=== PATIENT | male | born 1940 | race Caucasian/White ===

== ENCOUNTER 2017-05-22 07:42 | Day surgery (SDC) | payer MEDICARE ==
[2017-05-18 08:20] VITALS: BMI 28.0
[~2017-05-22 07:42] MED LIST: LACTATED RINGERS 1,000 ML IV SCH
[2017-05-22 08:35] VITALS: RESP 16; TEMP 97
[2017-05-22] MEDS ORDERED: LIDOCAINE 1% 20 ML VIAL (10MG/ML) FOR IV START INTRADERMA ONE (08:41)
[2017-05-22] MEDS ORDERED: LIDOCAINE 1% INJ 10MG/ML (20 ML MDV) ONE (09:07)
[2017-05-22] MEDS ORDERED: PROPOFOL 10 MG/ML 20 ML VIAL IV ONE (09:07)
--- NOTE | 2017-05-22 09:48 | P.PCN ---
Date of Procedure: 05/22/17 Procedure(s) Performed: Procedure: Colonoscopy and biopsy. Preoperative diagnosis: Screening for neoplasia. Postoperative diagnosis: 1. Diminutive distal sigmoid polyp biopsied but no large polyps or cancer. 2. 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 Preparation: HalfLytely prep. Sedation: Was provided by anesthesia. Brief clinical history: The patient is a 76-year-old male who is referred for this evaluation for screening for neoplasia age being his risk factor. The patient had a prior exam in 2008 but his preparation was poor. He has no abdominal complaints, bleeding or anemia. Procedure: With the patient on his left lateral decubitus position and after informed consent and adequate sedation, the perianal area was inspected and it did not show any fissures or fistulas. There were no masses felt on digital rectal examination. The Olympus CFQ 160L video colonoscope was then inserted in the rectum in the usual fashion and advanced to the cecum. There was some hyperpigmentation and mosaic patterns noted consistent with melanosis coli. No obvious diverticular disease or other significant pathology. There was a diminutive polyp in the distal sigmoid which I biopsied but there were no large polyps or cancer. I retroflexed the endoscope in the rectum before the endoscope was withdrawn. Low-grade internal hemorrhoids were noted with no evidence of bleeding. The patient tolerated the procedure well. Plan: The patient was reassured. Discussed dietary measures and local care for hemorrhoids. At his age, I did not schedule follow-up exam in 10 years and that can be kept as a contingency based on his overall health at that time. He will follow up with you as planned and he will discuss that with you.
[2017-05-22 10:30] VITALS: BP 137/70; PULSE 60
== END 2017-05-22 10:44 | disposition home or self-care (01) ==
LOC: ORWHC2ENDO 07:42
DX: Z12.11 Encounter for screening for malignant neoplasm of colon (principal); K63.5 Polyp of colon; K63.89 Other specified diseases of intestine; I25.10 Atherosclerotic heart disease of native coronary artery without angina pectoris; I10 Essential (primary) hypertension; E78.5 Hyperlipidemia, unspecified; N40.0 Benign prostatic hyperplasia without lower urinary tract symptoms; K21.9 Gastro-esophageal reflux disease without esophagitis; Z79.82 Long term (current) use of aspirin; Z79.899 Other long term (current) drug therapy
CPT/HCPCS: 88305; 45380; J2001; J2704

== ENCOUNTER → 2017-07-24 | Outpatient (CLI) | payer MEDICARE ==
--- NOTE | 2017-07-24 13:26 | NM ---
EXAMINATION TYPE: NM stress cardiolite complete DATE OF EXAM: 07/24/2017 COMPARISON: NONE HISTORY: Shortness of breath, chest pain, prior tobacco abuse, hypertension, prior cardiac catheteriz ation, prior myocardial ischemia, hyperlipidemia, and family history of heart disease. TECHNIQUE: After the intravenous administration of 11 mCi Tc 99m Sestamibi - Rest images obtained 59 minutes post injection. The patient exercised using a MATILDA protocol and 1 minute prior to peak ex ercise was injected with 23.8 mCi Tc 99m Sestamibi - Stress images obtained 30 minutes post injection . FINDINGS: Targeted heart rate was achieved during performance of the study. Review of stress and rest SPECT michelle ges demonstrates fixed defect of the inferior septal wall in the distribution of the right coronary a rtery with small fixed defect in the inferolateral wall that is approximately 2 segments with increas ed intensity and involvement of an additional segment on stress images indicating sintia-infarct ischem ia in the distribution of the left circumflex coronary artery. Gated analysis shows abnormal wall mo tion with hypokinesis in the inferior septal wall and inferolateral wall with an estimated left ventr icular ejection fraction of 54 %. TID is calculated within normal limits of 0.93. IMPRESSION: 1. Small fixed defect representing prior infarct with surrounding moderate sintia-infarct reversible is chemia in the distribution of the left circumflex coronary artery. 2. Small fixed defect in the distribution of the right coronary artery from prior infarct. 3. Estimated left ventricular ejection fraction of 54%.
--- NOTE | 2017-07-24 22:55 | EST ---
EXERCISE STRESS Baseline EKG revealed sinus mechanism with leftward axis and nonspecific inferolateral ST abnormality. The patient walked for 6 minutes 45 seconds on a standard Master protocol. His maximal heart rate was 137 beats per minute, well above 85% of predicted maximal. His peak blood pressure was 209/103. Resting heart rate was 55 and blood pressure was 146/90. EKG did not reveal any new ST-segment changes to indicate ischemia and remained inconclusive. There was no angina or any arrhythmia. The stress test was stopped because of fatigue and shortness of breath. By EKG criteria, this is an inconclusive stress test because of resting EKG changes. The patient had a hypertensive response to exercise. He did not have any clear-cut angina. The nuclear scan results which are more pertinent will be reported by the radiologist. HERMINIO / SHERLYN: [id number] /
== END | disposition home or self-care (01) ==
LOC: RADNMMAIN 09:08
PROVIDERS: ATTEND Internal Medicine Cardiovascular Disease
DX: I10 Essential (primary) hypertension (principal); R94.39 Abnormal result of other cardiovascular function study; E78.5 Hyperlipidemia, unspecified; I25.10 Atherosclerotic heart disease of native coronary artery without angina pectoris
CPT/HCPCS: 93017; 78452; A9500

== ENCOUNTER 2021-10-04 16:39 | Emergency (ER) | payer MEDICARE ==
[2021-10-04 16:57] VITALS: TEMP 98
[2021-10-04] MEDS ORDERED: ACETAMINOPHEN TAB 325 MG TAB PO STA (19:42)
[2021-10-04 20:05] VITALS: BP 160/90; PULSE 96; RESP 14
[2021-10-04] MEDS ORDERED: NEOMYCIN-BACITRACIN-POLY OINT 14 GM TUBE TOPICAL STA (20:27)
--- NOTE | 2021-10-04 20:27 | ED ---
General Adult HPI - General Chief complaint: Burn/Smoke Inhalation Stated complaint: L arm urbano/Propane Time Seen by Provider: 10/04/21 19:18 Source: patient Mode of arrival: ambulatory Limitations: no limitations - History of Present Illness Initial comments: Patient is a 81-year-old male presenting with chief complaint of burn. Patient had a welding accident several hours prior to arrival. This resulted in a circumferential second-degree burn to the left forearm. Patient has good range of motion of the fingers, wrist, elbow. He has not taken any pain control prior to arrival. He has been keeping it covered with a wet towel and ice. The burn starts on the dorsal aspect of the hand, and comes up just below the elbow, sparing the palm. Denies numbness, tingling, loss of ROM, chest pain, shortness of breath, fever, chills, nausea, vomiting. - Related Data Home Medications Medication Instructions Recorded Confirmed Aspirin [Adult Low Dose Aspirin EC] 81 mg PO HS 05/18/17 05/18/17 Atorvastatin [Lipitor] 80 mg PO HS 05/18/17 05/18/17 Metoprolol Succinate [Toprol XL] 25 mg PO HS 05/18/17 05/18/17 lisinopriL [Zestril] 5 mg PO HS 05/18/17 05/18/17 Allergies Allergy/AdvReac Type Severity Reaction Status Date / Time No Known Allergies Allergy Verified 10/04/21 16:57 Review of Systems ROS Statement: Those systems with pertinent positive or pertinent negative responses have been documented in the HPI. ROS Other: All systems not noted in ROS Statement are negative. Past Medical History Past Medical History: Coronary Artery Disease (CAD), Hyperlipidemia, Hypertension, Myocardial Infarction (ND), Prostate Disorder Last Myocardial Infarction Date:: 2007 History of Any Multi-Drug Resistant Organisms: None Reported Past Surgical History: Heart Catheterization, Heart Catheterization With Stent Additional Past Surgical History / Comment(s): colonoscopy Past Anesthesia/Blood Transfusion Reactions: No Reported Reaction Date of Last Stent Placement:: 2007 Past Psychological History: No Psychological Hx Reported Past Alcohol Use History: None Reported Past Drug Use History: None Reported - Past Family History Mother Family Medical History: No Reported History General Exam Limitations: no limitations General appearance: alert, in no apparent distress Head exam: Present: atraumatic, normocephalic, normal inspection Eye exam: Present: normal appearance, EOMI. Absent: scleral icterus Neck exam: Present: normal inspection Respiratory exam: Present: normal lung sounds bilaterally. Absent: respiratory distress, wheezes, rales, rhonchi, stridor Cardiovascular Exam: Present: regular rate, normal rhythm, normal heart sounds. Absent: systolic murmur, diastolic murmur, rubs, gallop, clicks Neurological exam: Present: alert, oriented X3, CN II-XII intact Psychiatric exam: Present: normal affect, normal mood Skin exam: Present: other (burn: redness with blanching, blisters) Expanded Distribution of rash: LUE (Left forearm and dorsal surface of the hand) Course Vital Signs 10/04/21 10/04/21 16:52 20:04 Temperature 98 F Pulse Rate 70 96 Respiratory 16 14 Rate Blood Pressure 134/84 160/90 O2 Sat by Pulse 98 Oximetry Medical Decision Making - Medical Decision Making Patient is a 81-year-old male presenting with chief complaint of burn to the left forearm. This occurred after a welding accident several hours ago. Patient has full range of motion of the arm, wrist, fingers. The affected area is bright red. It is circumferential around the left forearm, it covers the dorsal aspect of the hand and spares the palm, about 4.5% of BSA. No numbness or tingling. Good capillary refill. Soft compartments. There are some blisters seen on examination. Full sensation. I spoke with the burn clinic at the [facility], they stated that this patient could follow up outpatient at the burn clinic tomorrow morning. I used triple antibiotic ointment with nonadhesive dressing and gauze, as advised. Educated the patient on this plan. I discussed return parameters. Answered all questions. Report back to ER with any worsening symptoms. Follow up with burn clinic tomorrow, follow-up with PCP in 2-3 days. Patient conveyed verbal understanding and agreed to the plan. I discussed this case with my attending Dr. Piper. Disposition Clinical Impression: Second degree burn Disposition: HOME SELF-CARE Condition: Good Instructions (If sedation given, give patient instructions): Second-Degree Burn (ED) Additional Instructions: Follow up with burn clinic tomorrow. Phone number is [phone], call to make appointment. address: [address] [place], [place] [id number]. They open at 8am. Follow-up with PCP in one to 2 days. Report back to ER if any worsening symptoms. Is patient prescribed a controlled substance at d/c from ED?: No Referrals: Rdaha Carter DO [Primary Care Provider] - 1-2 days Time of Disposition: 21:40
[2021-10-04] MEDS ORDERED: DIPH,PERTUS(ACELL)TETVAC-LF 0.5 ML VIAL IM ONE (21:01)
== END 2021-10-04 22:25 | disposition home or self-care (01) ==
LOC: EC 16:39
DX: T22.212A Burn of second degree of left forearm, initial encounter (principal); I25.10 Atherosclerotic heart disease of native coronary artery without angina pectoris; E78.5 Hyperlipidemia, unspecified; Z23 Encounter for immunization; I10 Essential (primary) hypertension; I25.2 Old myocardial infarction; Z79.1 Long term (current) use of non-steroidal anti-inflammatories (NSAID)
CPT/HCPCS: 90715

== ENCOUNTER 2024-02-13 19:18 | Observation (INO) | payer MEDICARE ==
--- NOTE | 2024-02-13 19:41 | ED ---
General Adult HPI - General Chief complaint: Syncope Stated complaint: nearSyncope Time Seen by Provider: 02/13/24 19:23 Source: patient, EMS, RN notes reviewed Mode of arrival: EMS Limitations: no limitations - History of Present Illness Initial comments: Patient is an 83-year-old male present to the emergency department with concern for syncopal episode. Patient arrives via EMS. Patient states he was working outside all day today. Patient states he was sitting with family and suddenly felt warm all over and vomited. Patient states that he has improved however still feels a little bit nauseous. Patient states he did feel like he was about to pass out but does not believe that he did. Family arrived shortly after and states patient was unresponsive for at least a couple of seconds. - Related Data Home Medications Medication Instructions Recorded Confirmed Aspirin [Adult Low Dose Aspirin EC] 81 mg PO DAILY 05/18/17 02/13/24 Atorvastatin [Lipitor] 80 mg PO HS 05/18/17 02/13/24 Metoprolol Succinate [Toprol XL] 25 mg PO DAILY 05/18/17 02/13/24 lisinopriL [Zestril] 5 mg PO DAILY 05/18/17 02/13/24 Divalproex Sprinkle [Depakote 125 mg PO DAILY 02/13/24 02/13/24 Sprinkle] Divalproex Sprinkle [Depakote 250 mg PO HS 02/13/24 02/13/24 Sprinkle] Famotidine [Pepcid] 20 mg PO DAILY 02/13/24 02/13/24 Melatonin 5 mg PO HS 02/13/24 02/13/24 Multivitamins, Thera [Multivitamin 1 tab PO DAILY 02/13/24 02/13/24 (formulary)] Tamsulosin [Flomax] 0.4 mg PO DAILY 02/13/24 02/13/24 Allergies Allergy/AdvReac Type Severity Reaction Status Date / Time No Known Allergies Allergy Verified 10/04/21 16:57 Review of Systems ROS Statement: Those systems with pertinent positive or pertinent negative responses have been documented in the HPI. ROS Other: All systems not noted in ROS Statement are negative. Constitutional: Denies: fever Eyes: Denies: eye pain ENT: Denies: ear pain Respiratory: Denies: cough, dyspnea Cardiovascular: Denies: chest pain Gastrointestinal: Reports: as per HPI, nausea, vomiting. Denies: abdominal pain Musculoskeletal: Denies: back pain Neurological: Denies: headache, weakness, confusion Past Medical History Past Medical History: Coronary Artery Disease (CAD), Hyperlipidemia, Hypertension, Myocardial Infarction (PR), Prostate Disorder Last Myocardial Infarction Date:: 2007 History of Any Multi-Drug Resistant Organisms: None Reported Past Surgical History: Heart Catheterization, Heart Catheterization With Stent Additional Past Surgical History / Comment(s): colonoscopy Past Anesthesia/Blood Transfusion Reactions: No Reported Reaction Date of Last Stent Placement:: 2007 Past Psychological History: No Psychological Hx Reported Past Alcohol Use History: None Reported Past Drug Use History: None Reported - Past Family History Mother Family Medical History: No Reported History General Exam Limitations: no limitations General appearance: alert, in no apparent distress Head exam: Present: normocephalic Eye exam: Present: normal appearance Neck exam: Present: normal inspection Respiratory exam: Present: normal lung sounds bilaterally Cardiovascular Exam: Present: regular rate, normal rhythm, normal heart sounds GI/Abdominal exam: Present: soft. Absent: tenderness Extremities exam: Present: normal inspection. Absent: pedal edema, calf tenderness Neurological exam: Present: alert, oriented X3, CN II-XII intact. Absent: motor sensory deficit Expanded Neurological exam: Present: protecting the airway Motor strength exam: RUE: 5, LUE: 5, RLE: 5, LLE: 5 Eye Response: (4) open spontaneously Motor Response: (6) obeys commands Verbal Response: (5) oriented Psychiatric exam: Present: normal affect, normal mood Skin exam: Present: normal color Course Vital Signs 02/13/24 02/13/24 02/13/24 19:21 20:13 21:21 Temperature 97.3 F L Pulse Rate 74 63 72 Respiratory 18 18 18 Rate Blood Pressure 119/67 111/63 O2 Sat by Pulse 92 L 94 L Oximetry EKG Findings - EKG Results: EKG: interpreted by ERMD (Left axis. Q wave V1 V2.), sinus rhythm, normal ST/T EKG shows: bradycardia Medical Decision Making - Medical Decision Making Was pt. sent in by a medical professional or institution (, PA, SHIP CLEANER, urgent care, hospital, or shelter...) When possible be specific @ -No Did you speak to anyone other than the patient for history (EMS, parent, family, police, friend...)? What history was obtained from this source @ -Family does arrive and provides additional history that patient did truly have a syncopal episode Did you review nursing and triage notes (agree or disagree)? Why? @ -I reviewed and agree with nursing and triage notes Were old charts reviewed (outside hosp., previous admission, EMS record, old EKG, old radiological studies, urgent care reports/EKG's, shelter records)? Report findings @ -No old charts were reviewed Differential Diagnosis (chest pain, altered mental status, abdominal pain women, abdominal pain men, vaginal bleeding, weakness, fever, dyspnea, syncope, headache, dizziness, GI bleed, back pain, seizure, CVA, palpatations, mental health, musculoskeletal)? @ -Differential Syncope: Valvular disease, hypertrophic cardiomyopathy, pulmonary embolism, tamponade, tachycardia, bradycardia, PR, hypovolemia, hemorrhage, dissection, anemia, intracranial hemorrhage, seizure, hypoglycemia, carbon monoxide poisoning, this is not meant to be an all-inclusive list. EKG interpreted by me (3pts min.). @ -As above X-rays interpreted by me (1pt min.). @ -Chest x-ray does show cardiomegaly and some minimal interstitial changes are increased. CT interpreted by me (1pt min.). @ -None done U/S interpreted by me (1pt. min.). @ -None done What testing was considered but not performed or refused? (CT, X-rays, U/S, labs)? Why? @ -Pro BNP will be added What meds were considered but not given or refused? Why? @ -None Did you discuss the management of the patient with other professionals (professionals i.e. DrVicki, PA, SHIP CLEANER, lab, RT, psych nurse, social service technician, manager of financial reporting, teacher, airplane first officer, case management manager)? Give summary @ -I did talk with practitioner Katarzyna Barrios will admit covering for Dr. Cordero, covering for Dr. Purcell Was smoking cessation discussed for >3mins.? @ -No Was critical care preformed (if so, how long)? @ -No Were there social determinants of health that impacted care today? How? (Homeles sness, low income, unemployed, alcoholism, drug addiction, transportation, low edu. Level, literacy, decrease access to med. care, skilled nursing, rehab)? @ -No Was there de-escalation of care discussed even if they declined (Discuss DNR or withdrawal of care, Hospice)? DNR status @ -No What co-morbidities impacted this encounter? (DM, HTN, Smoking, COPD, CAD, Cancer, CVA, ARF, Chemo, Hep., AIDS, mental health diagnosis, sleep apnea, morbid obesity)? @ -None Was patient admitted / discharged? Hospital course, mention meds given and route, prescriptions, significant lab abnormalities, going to OR and other pertinent info. @ -Patient presents with syncopal episode. Workup unremarkable. Patient will be admitted, admission orders written. Consult placed. Patient and family updated. Undiagnosed new problem with uncertain prognosis? @ -No Drug Therapy requiring intensive monitoring for toxicity (Heparin, Nitro, Insulin, Cardizem)? @ -No Were any procedures done? @ -No Diagnosis/symptom? @ -Syncope Acute, or Chronic, or Acute on Chronic? @ -Acute Uncomplicated (without systemic symptoms) or Complicated (systemic symptoms)? @ -Default Side effects of treatment? @ -No Exacerbation, Progression, or Severe Exacerbation? @ -No Poses a threat to life or bodily function? How? (Chest pain, USA, PR, pneumonia, PE, COPD, DKA, ARF, appy, cholecystitis, CVA, Diverticulitis, Homicidal, Suici ken, threat to staff... and all critical care pts) @ -No - Lab Data Result diagrams: 02/13/24 19:51 02/13/24 19:51 Lab Results 02/13/24 02/13/24 02/13/24 Range/Units 19:51 19:51 19:51 WBC 6.4 (3.8-10.6) k/uL RBC 4.20 L (4.30-5.90) m/uL Hgb 13.1 (13.0-17.5) gm/dL Hct 38.9 L (39.0-53.0) % MCV 92.6 (80.0-100.0) fL MCH 31.1 (25.0-35.0) pg MCHC 33.5 (31.0-37.0) g/dL RDW 13.5 (11.5-15.5) % Plt Count 218 (150-450) k/uL MPV 7.9 Neutrophils % 59 % Lymphocytes % 27 % Monocytes % 8 % Eosinophils % 3 % Basophils % 0 % Neutrophils # 3.8 (1.3-7.7) k/uL Lymphocytes # 1.7 (1.0-4.8) k/uL Monocytes # 0.5 (0-1.0) k/uL Eosinophils # 0.2 (0-0.7) k/uL Basophils # 0.0 (0-0.2) k/uL PT 10.7 (10.0-12.5) sec INR 1.0 (<1.2) APTT 22.8 (22.0-30.0) sec Sodium 137 (137-145) mmol/L Potassium 4.6 (3.5-5.1) mmol/L Chloride 105 (98-107) mmol/L Carbon Dioxide 30 (22-30) mmol/L Anion Gap 2 mmol/L BUN 23 H (9-20) mg/dL Creatinine 0.87 (0.66-1.25) mg/dL Est GFR (CKD-EPI)AfAm >90 (>60 ml/min/1.73 sqM) Est GFR (CKD-EPI)NonAf 81 (>60 ml/min/1.73 sqM) Glucose 114 H (74-99) mg/dL Calcium 8.9 (8.4-10.2) mg/dL Magnesium 2.0 (1.6-2.3) mg/dL Total Bilirubin 0.6 (0.2-1.3) mg/dL AST 38 (17-59) U/L ALT 27 (4-49) U/L Alkaline Phosphatase 48 (38-126) U/L Troponin I (0.000-0.034) ng/mL Total Protein 5.8 L (6.3-8.2) g/dL Albumin 3.6 (3.5-5.0) g/dL Valproic Acid 25.6 ug/mL 02/13/24 Range/Units 19:51 WBC (3.8-10.6) k/uL RBC (4.30-5.90) m/uL Hgb (13.0-17.5) gm/dL Hct (39.0-53.0) % MCV (80.0-100.0) fL MCH (25.0-35.0) pg MCHC (31.0-37.0) g/dL RDW (11.5-15.5) % Plt Count (150-450) k/uL MPV Neutrophils % % Lymphocytes % % Monocytes % % Eosinophils % % Basophils % % Neutrophils # (1.3-7.7) k/uL Lymphocytes # (1.0-4.8) k/uL Monocytes # (0-1.0) k/uL Eosinophils # (0-0.7) k/uL Basophils # (0-0.2) k/uL PT (10.0-12.5) sec INR (<1.2) APTT (22.0-30.0) sec Sodium (137-145) mmol/L Potassium (3.5-5.1) mmol/L Chloride (98-107) mmol/L Carbon Dioxide (22-30) mmol/L Anion Gap mmol/L BUN (9-20) mg/dL Creatinine (0.66-1.25) mg/dL Est GFR (CKD-EPI)AfAm (>60 ml/min/1.73 sqM) Est GFR (CKD-EPI)NonAf (>60 ml/min/1.73 sqM) Glucose (74-99) mg/dL Calcium (8.4-10.2) mg/dL Magnesium (1.6-2.3) mg/dL Total Bilirubin (0.2-1.3) mg/dL AST (17-59) U/L ALT (4-49) U/L Alkaline Phosphatase (38-126) U/L Troponin I <0.012 (0.000-0.034) ng/mL Total Protein (6.3-8.2) g/dL Albumin (3.5-5.0) g/dL Valproic Acid ug/mL Disposition Clinical Impression: Syncope Disposition: ADMITTED IP TO THIS HOSP Is patient prescribed a controlled substance at d/c from ED?: No Referrals: Radha Carter DO [Primary Care Provider] - 1-2 days Time of Disposition: 21:43
[2024-02-13] MEDS: ONDANSETRON 4 MG/2 ML VIAL IVP STA (19:44)
[2024-02-13] MEDS: FAMOTIDINE 20 MG/2 ML VIAL IV STA (19:44)
[2024-02-13 19:58] LABS: Basophils % (A) 0 %; Eosinophils # (A) 0.2 k/uL (0-0.7); Eosinophils % (A) 3 %; HCT 38.9 % (39.0-53.0); HGB 13.1 gm/dL (13.0-17.5); Lymphocytes # (A) 1.7 k/uL (1.0-4.8); Lymphocytes % (A) 27 %; MCH 31.1 pg (25.0-35.0); MCHC 33.5 g/dL (31.0-37.0); MCV 92.6 fL (80.0-100.0); Mean Platelet Volume 7.9; Monocytes # (A) 0.5 k/uL (0-1.0); Monocytes % (A) 8 %; Neutrophils # (A) 3.8 k/uL (1.3-7.7); Neutrophils % (A) 59 %; Platelet Count 218 k/uL (150-450); RDW 13.5 % (11.5-15.5); WBC 6.4 k/uL (3.8-10.6)
[2024-02-13 20:07] LABS: ALT 27 U/L (4-49); AST 38 U/L (17-59); African American GFR (CKD) >90 (>60 ml/min/1.73 sqM); Albumin 3.6 g/dL (3.5-5.0); Alkaline Phosphatase 48 U/L (38-126); Anion Gap 2 mmol/L; Blood Urea Nitrogen 23 mg/dL (9-20); Calcium 8.9 mg/dL (8.4-10.2); Carbon Dioxide 30 mmol/L (22-30); Chloride 105 mmol/L (98-107); Glucose 114 mg/dL (74-99); Non-African American GFR(CKD) 81 (>60 ml/min/1.73 sqM); Potassium 4.6 mmol/L (3.5-5.1); Sodium 137 mmol/L (137-145); Total Bilirubin 0.6 mg/dL (0.2-1.3); Total Protein 5.8 g/dL (6.3-8.2)
[2024-02-13 20:12] LABS: Valproic Acid (Depakene) 25.6 ug/mL
--- NOTE | 2024-02-13 20:32 | XR ---
EXAMINATION TYPE: XR chest 2V DATE OF EXAM: 02/13/2024 8:00 PM CLINICAL INDICATION:Male, 83 years old with history of syncope; [facility] COMPARISON: 04/23/2014 TECHNIQUE: XR chest 2V. Frontal and lateral views of the chest.. FINDINGS: EKG leads overlie the chest. No indwelling lines are seen. Heart size is upper limits of normal. Partially calcified mildly tortuous aorta. Central vascular congestion with diffuse interstitial prominence suggesting edema. Mild bibasilar ate lectasis. No focal consolidation, sizable effusion, or pneumothorax demonstrated. Mild/moderate diffuse osseous degenerative changes. No clearly acute bony abnormalities. IMPRESSION: Borderline mild cardiomegaly with mild congestive changes. [facility], , 02/13/2024 8:29 PM
[2024-02-13 20:53] LABS: Partial Thromboplastin Time 22.8 sec (22.0-30.0); Prothrombin Time 10.7 sec (10.0-12.5)
[2024-02-13] MEDS ORDERED: NALOXONE 0.4 MG/ML 1 ML VIAL IV PRN (21:43)
[2024-02-14 04:20] LABS: Basophils % (A) 0 %; Eosinophils # (A) 0.1 k/uL (0-0.7); Eosinophils % (A) 2 %; HCT 37.8 % (39.0-53.0); HGB 12.2 gm/dL (13.0-17.5); Lymphocytes # (A) 1.2 k/uL (1.0-4.8); Lymphocytes % (A) 24 %; MCH 29.9 pg (25.0-35.0); MCHC 32.2 g/dL (31.0-37.0); MCV 92.8 fL (80.0-100.0); Mean Platelet Volume 8.2; Monocytes # (A) 0.6 k/uL (0-1.0); Monocytes % (A) 11 %; Neutrophils % (A) 59 %; Platelet Count 214 k/uL (150-450); RBC 4.08 m/uL (4.30-5.90); RDW 13.6 % (11.5-15.5); WBC 5.1 k/uL (3.8-10.6)
[2024-02-14 04:35] LABS: ALT 24 U/L (4-49); AST 29 U/L (17-59); African American GFR (CKD) >90 (>60 ml/min/1.73 sqM); Albumin 3.4 g/dL (3.5-5.0); Alkaline Phosphatase 46 U/L (38-126); Anion Gap 3 mmol/L; Blood Urea Nitrogen 22 mg/dL (9-20); Calcium 9.1 mg/dL (8.4-10.2); Carbon Dioxide 28 mmol/L (22-30); Chloride 107 mmol/L (98-107); Glucose 95 mg/dL (74-99); Non-African American GFR(CKD) 83 (>60 ml/min/1.73 sqM); Potassium 4.6 mmol/L (3.5-5.1); Sodium 138 mmol/L (137-145); Total Bilirubin 0.5 mg/dL (0.2-1.3); Total Protein 5.5 g/dL (6.3-8.2)
--- NOTE | 2024-02-14 09:53 | P.CRDCN ---
History of Present Illness History of present illness: HISTORY OF PRESENT ILLNESS: This is a 83-year-old male with a past medical history significant for hypertension, hyperlipidemia, myocardial infarction, traumatic brain injury, and seizure disorder. Patient follows with Dr. Arndt in [facility]. We have been asked to see the patient in consultation for syncope. Patient examined at the bedside in the emergency room. Patient's family is present and helping to provide additional HPI. Patient was eating pizza yesterday with his family. He was sitting down at the kitchen table when he felt his face get flushed and told his family he felt like he was going to pass out. His family helped stand him up and get him to the recliner. The family member states at that time, the patient did pass out. He also states that the patient was extremely diaphoretic. The patient also had an episode of vomiting. The patient was reportedly bradycardic when EMS arrived. The patient is reporting sinus congestion and fullness this morning. DIAGNOSTICS: - EKG reveals sinus bradycardia with no signs of acute ischemia. - Chest xray borderline mild cardiomegaly with mild congestive changes. - Laboratory data: WBC 5.1. Hemoglobin 12.2. WBC 214. Sodium 138. Potassium 4.6. BUN 22. Creatinine 0.82. Magnesium 2.0. Troponin negative x 3. proBNP 264. - Current home cardiac medications include aspirin 81 mg daily, atorvastatin 80 mg at night, metoprolol succinate 25 mg daily, lisinopril 5 mg daily. -Patient underwent Cardiolite stress test in July 2017 revealing small fixed defect representing prior infarct with surrounding moderate sintia-infarct reversible ischemia in the distribution of the left circumflex coronary artery. A small fixed defect in the distribution of the RCA from prior infarct. EF estimated at 54%. REVIEW OF SYSTEMS: At the time of my exam: CONSTITUTIONAL: Denies fever or chills. HEENT: Denies blurred vision, vision changes, or eye pain. Denies hemoptysis CARDIOVASCULAR: Denies chest pain. Denies orthopnea. Denies PND. Denies palpitations RESPIRATORY: Denies shortness of breath. GASTROINTESTINAL: Denies abdominal pain. Denies nausea or vomiting. HEMATOLOGIC: Denies bleeding disorders. GENITOURINARY: Denies any blood in urine. SKIN: Denies pruitis. Denies rash. PHYSICAL EXAM: VITAL SIGNS: Reviewed. GENERAL: Well-developed in no acute distress. HEENT: Head is normocephalic. Pupils are equal, round. Sclerae anicteric. Mucous membranes of the mouth are moist. Neck supple. No JVD or thyromegaly LUNGS: Respirations even and unlabored. Lungs essentially clear to auscultation bilaterally. HEART: Regular rate and rhythm. S1 and S2 heard. ABDOMEN: Soft. Nondistended. Nontender. EXTREMITIES: Normal range of motion. No clubbing or cyanosis. Peripheral pulses intact. Bilateral lower extremity edema noted. NEUROLOGIC: Awake and alert. Oriented x 3. ASSESSMENT: Syncope, likely vasovagal in nature Hypertension Hyperlipidemia History of myocardial infarction, details unknown History of traumatic brain injury, 3 years ago History of seizure disorder Chronic lower extremity edema PLAN: Obtain 2D echo to assess cardiac structure and function Resume home cardiac medications Continue telemetry monitoring Obtain records from patient's primary test engine operator Event monitors are currently unavailable at this facility. Will provide patient with a 14-day Holter at the time of discharge with report to be sent to his primary test engine operator. Possible discharge home this afternoon if patient remains stable Patient to follow-up postdischarge with his primary test engine operator, Dr. Arndt Nurse practitioner note has been reviewed by physician. Signing provider agrees with the documented findings, assessment, and plan of care documented by MACHINE HEEL SEAT FITTER as a scribe. Past Medical History Past Medical History: Coronary Artery Disease (CAD), Hyperlipidemia, Hypertension, Myocardial Infarction ([place]), Prostate Disorder Last Myocardial Infarction Date:: 2007 History of Any Multi-Drug Resistant Organisms: None Reported Past Surgical History: Heart Catheterization, Heart Catheterization With Stent Additional Past Surgical History / Comment(s): colonoscopy Past Anesthesia/Blood Transfusion Reactions: No Reported Reaction Date of Last Stent Placement:: 2007 Past Psychological History: No Psychological Hx Reported Past Alcohol Use History: None Reported Past Drug Use History: None Reported - Past Family History Mother Family Medical History: No Reported History Medications and Allergies Home Medications Medication Instructions Recorded Confirmed Type Aspirin [Adult Low Dose Aspirin EC] 81 mg PO DAILY 05/18/17 02/13/24 History Atorvastatin [Lipitor] 80 mg PO HS 05/18/17 02/13/24 History Metoprolol Succinate [Toprol XL] 25 mg PO DAILY 05/18/17 02/13/24 History lisinopriL [Zestril] 5 mg PO DAILY 05/18/17 02/13/24 History Divalproex Sprinkle [Depakote 125 mg PO DAILY 02/13/24 02/13/24 History Sprinkle] Divalproex Sprinkle [Depakote 250 mg PO HS 02/13/24 02/13/24 History Sprinkle] Famotidine [Pepcid] 20 mg PO DAILY 02/13/24 02/13/24 History Melatonin 5 mg PO HS 02/13/24 02/13/24 History Multivitamins, Thera [Multivitamin 1 tab PO DAILY 02/13/24 02/13/24 History (formulary)] Tamsulosin [Flomax] 0.4 mg PO DAILY 02/13/24 02/13/24 History Allergies Allergy/AdvReac Type Severity Reaction Status Date / Time No Known Allergies Allergy Verified 10/04/21 16:57 Physical Exam Vitals: Vital Signs Temp Pulse Resp BP Pulse Ox 02/14/24 06:53 70 11 L 140/75 96 02/14/24 05:04 60 02/14/24 03:34 52 L 18 105/53 99 02/14/24 02:23 46 L 19 114/69 100 02/14/24 01:12 97.6 F 55 L 11 L 121/72 98 02/14/24 00:35 64 02/14/24 00:10 46 L 18 101/63 99 02/13/24 22:25 71 12 92/51 99 02/13/24 22:14 98 02/13/24 21:21 72 18 111/63 94 L 02/13/24 20:13 63 18 119/67 92 L 02/13/24 19:21 97.3 F L 74 18 Intake and Output 02/13/24 02/14/24 02/14/24 22:59 06:59 14:59 Other: Weight 88.451 kg Results 02/14/24 03:29 02/14/24 03:29 Cardiac Enzymes 02/13/24 02/13/24 02/14/24 Range/Units 19:51 19:51 00:32 AST 38 (17-59) U/L Troponin I <0.012 <0.012 (0.000-0.034) ng/mL 02/14/24 02/14/24 Range/Units 03:29 03:29 AST 29 (17-59) U/L Troponin I <0.012 (0.000-0.034) ng/mL Coagulation 02/13/24 Range/Units 19:51 PT 10.7 (10.0-12.5) sec APTT 22.8 (22.0-30.0) sec CBC 02/13/24 02/14/24 Range/Units 19:51 03:29 WBC 6.4 5.1 (3.8-10.6) k/uL RBC 4.20 L 4.08 L (4.30-5.90) m/uL Hgb 13.1 12.2 L (13.0-17.5) gm/dL Hct 38.9 L 37.8 L (39.0-53.0) % Plt Count 218 214 (150-450) k/uL Comprehensive Metabolic Panel 02/13/24 02/14/24 Range/Units 19:51 03:29 Sodium 137 138 (137-145) mmol/L Potassium 4.6 4.6 (3.5-5.1) mmol/L Chloride 105 107 (98-107) mmol/L Carbon Dioxide 30 28 (22-30) mmol/L BUN 23 H 22 H (9-20) mg/dL Creatinine 0.87 0.82 (0.66-1.25) mg/dL Glucose 114 H 95 (74-99) mg/dL Calcium 8.9 9.1 (8.4-10.2) mg/dL AST 38 29 (17-59) U/L ALT 27 24 (4-49) U/L Alkaline Phosphatase 48 46 (38-126) U/L Total Protein 5.8 L 5.5 L (6.3-8.2) g/dL Albumin 3.6 3.4 L (3.5-5.0) g/dL Current Medications Generic Name Dose Route Start Last Admin Trade Name Freq PRN Reason Stop Dose Admin Atorvastatin Calcium 80 mg 02/14/24 21:00 Atorvastatin 80 Mg Tab PO HS ANTONINO Famotidine 20 mg 02/14/24 09:00 Famotidine 20 Mg Tab PO DAILY ANTONINO Melatonin 5 mg 02/14/24 21:00 Melatonin 5 Mg Tablet PO HS ANTONINO Multivitamins 1 each 02/14/24 09:00 Multivitamins, Thera 1 Each Tab PO DAILY [facility] Naloxone HCl 0.2 mg 02/13/24 21:43 Naloxone 0.4 Mg/Ml 1 Ml Vial IV Q2M PRN Opioid Reversal Intake and Output 02/13/24 02/14/24 02/14/24 22:59 06:59 14:59 Other: Weight 88.451 kg 02/14/24 03:29 02/14/24 03:29
[2024-02-14] MEDS: MULTIVITAMINS, THERA 1 EACH TAB PO SCH (10:03)
[2024-02-14] MEDS: lisinopriL 5 MG TAB PO SCH (10:03)
[2024-02-14] MEDS: DIVALPROEX SPRINKLE 125 MG CAP.SPRINK PO SCH ×2 (10:03→20:38)
[2024-02-14] MEDS: METOPROLOL SUCCINATE (ER) 25 MG TAB.ER.24H PO SCH (10:04)
[2024-02-14] MEDS: FAMOTIDINE 20 MG TAB PO SCH (10:04)
[2024-02-14] MEDS: TAMSULOSIN 0.4 MG CAP.ER.24H PO SCH (10:04)
[2024-02-14] MEDS: ASPIRIN 81 MG PO SCH (10:04)
--- NOTE | 2024-02-14 10:19 | P.HPIM ---
History of Present Illness History of present illness; 83-year-old male with a past medical history of hyperlipidemia, hypertension, BPH, and TBI (3 years ago) presents with complaints of a syncopal episode. Patient reports he was working outside all day yesterday, in the evening was sitting with his family when he started to feel very warm and vomited. Patient reports he did not feel he was about to pass out and believes that he did not, but after speaking with the family they report he was unresponsive for at least a couple seconds. Family also report they noticed some urinary incontinence when the patient was not responsive. Family reports they did not see any jerking of the extremities. Family reports after the episode patient was not completely responsive but was awake and only speaking in 1-2 word phrases. Family then reports by the time EMS arrived the patient had regained his normal mentation. Initial lab work from the ER was significant for WBC 6.4, hemoglobin 13.1, MCV 92.6, PT 10.7, INR 1.0, sodium 137, potassium 4.6, bicarb 30, creatinine 0.87, glucose 95, troponin less than 0.012, and BNP 264. EKG done in the ER showed heart rate of 58 bpm, no ST segment elevation or depression seen, no T-wave inversions seen. Sinus bradycardia with first-degree AV block ER CXR: Borderline mild cardiomegaly with mild congestive changes ER CT head: No acute intracranial process, encephalomalacia involving the bilateral temporal lobes and left parietal lobe from prior insults. Patient admitted to internal medicine service REVIEW OF SYSTEMS: CONSTITUTIONAL: No fever, no malaise, no fatigue. HEENT: No recent visual problems or hearing problems. Denied any sore throat. CARDIOVASCULAR: No chest pain, orthopnea, PND, no palpitations, no syncope. PULMONARY: No shortness of breath, no cough, no hemoptysis. GASTROINTESTINAL: No diarrhea, no nausea, no vomiting, no abdominal pain. NEUROLOGICAL: No headaches, no weakness, no numbness. HEMATOLOGICAL: Denies any bleeding or petechiae. GENITOURINARY: Denies any burning micturition, frequency, or urgency. MUSCULOSKELETAL/RHEUMATOLOGICAL: Denies any joint pain, swelling, or any muscle pain. ENDOCRINE: Denies any polyuria or polydipsia. The rest of the 14-point review of systems is negative. PHYSICAL EXAMINATION: GENERAL: The patient is alert and oriented x3, not in any acute distress. Well developed, well nourished. HEENT: Pupils are round and equally reacting to light. EOMI. No scleral icterus. No conjunctival pallor. Normocephalic, atraumatic. No pharyngeal erythema. No thyromegaly. CARDIOVASCULAR: S1 and S2 present. No murmurs, rubs, or gallops. PULMONARY: Chest is clear to auscultation b/l, no wheezing or crackles. ABDOMEN: Soft, nontender, nondistended, normoactive bowel sounds. No palpable organomegaly. MUSCULOSKELETAL: No joint swelling or deformity. EXTREMITIES: No cyanosis, clubbing, or pedal edema. NEUROLOGICAL: Gross neurological examination did not reveal any focal deficits. SKIN: No rashes. Assessment & Plan: #Witnessed syncopal episode: Cardiology on consult, recommend resuming home cardiac medications and providing patient with 14-day Holter monitor at time of discharge, will follow for further recommendations Echo ordered Neurology on consult, recommend increasing Depakote to 500 mg twice daily Seizure precaution and pads Per [facility], recent seizures/syncope disallows people from driving for at least 6 months of being seizure-free or no further syncopal episodes. #Hypertension Resumed home meds #Hyperlipidemia: Resumed home meds #BPH: Resumed home tamsulosin # History of traumatic brain injury: Patient follows with neurologist outpatient, is on low dose of Depakote for mood and antiseizure benefits Neurology following F: None E: None N: Heart healthy diet A: Normally ambulates at home unassisted DVT ppx: Heparin SQ 5000 every 12 hours GI ppx: Famotidine CODE STATUS: Full code Dispo: Pending clinical course Gina Hawley MD PGY-1 FM Attestation I have seen and examined this patient with my resident , discussed the same with the resident/SONY, and agree with the dictator's assessment and plan as written Dr. Rashard edward Dictation was produced using [employer] dictation software. please excuse any grammatical, word or spelling errors. Past Medical History Past Medical History: Coronary Artery Disease (CAD), Hyperlipidemia, Hypertensi on, Myocardial Infarction ([place]), Prostate Disorder Last Myocardial Infarction Date:: 2007 History of Any Multi-Drug Resistant Organisms: None Reported Past Surgical History: Heart Catheterization, Heart Catheterization With Stent Additional Past Surgical History / Comment(s): colonoscopy Past Anesthesia/Blood Transfusion Reactions: No Reported Reaction Date of Last Stent Placement:: 2007 Past Psychological History: No Psychological Hx Reported Past Alcohol Use History: None Reported Past Drug Use History: None Reported - Past Family History Mother Family Medical History: No Reported History Medications and Allergies Home Medications Medication Instructions Recorded Confirmed Type Aspirin [Adult Low Dose Aspirin EC] 81 mg PO DAILY 05/18/17 02/13/24 History Atorvastatin [Lipitor] 80 mg PO HS 05/18/17 02/13/24 History Metoprolol Succinate [Toprol XL] 25 mg PO DAILY 05/18/17 02/13/24 History lisinopriL [Zestril] 5 mg PO DAILY 05/18/17 02/13/24 History Divalproex Sprinkle [Depakote 125 mg PO DAILY 02/13/24 02/13/24 History Sprinkle] Divalproex Sprinkle [Depakote 250 mg PO HS 02/13/24 02/13/24 History Sprinkle] Famotidine [Pepcid] 20 mg PO DAILY 02/13/24 02/13/24 History Melatonin 5 mg PO HS 02/13/24 02/13/24 History Multivitamins, Thera [Multivitamin 1 tab PO DAILY 02/13/24 02/13/24 History (formulary)] Tamsulosin [Flomax] 0.4 mg PO DAILY 02/13/24 02/13/24 History Allergies Allergy/AdvReac Type Severity Reaction Status Date / Time No Known Allergies Allergy Verified 10/04/21 16:57 Physical Exam Vitals: Vital Signs Temp Pulse Resp BP Pulse Ox 02/14/24 06:53 70 11 L 140/75 96 02/14/24 05:04 60 02/14/24 03:34 52 L 18 105/53 99 02/14/24 02:23 46 L 19 114/69 100 02/14/24 01:12 97.6 F 55 L 11 L 121/72 98 02/14/24 00:35 64 02/14/24 00:10 46 L 18 101/63 99 02/13/24 22:25 71 12 92/51 99 02/13/24 22:14 98 02/13/24 21:21 72 18 111/63 94 L 02/13/24 20:13 63 18 119/67 92 L 02/13/24 19:21 97.3 F L 74 18 Intake and Output 02/13/24 02/14/24 02/14/24 22:59 06:59 14:59 Other: Weight 88.451 kg Results CBC & Chem 7: 02/15/24 04:31 02/15/24 04:31 Labs: Abnormal Lab Results - Last 24 Hours (Table) 02/13/24 02/13/24 02/14/24 Range/Units 19:51 19:51 03:29 RBC 4.20 L 4.08 L (4.30-5.90) m/uL Hgb 12.2 L (13.0-17.5) gm/dL Hct 38.9 L 37.8 L (39.0-53.0) % BUN 23 H (9-20) mg/dL Glucose 114 H (74-99) mg/dL Total Protein 5.8 L (6.3-8.2) g/dL Albumin (3.5-5.0) g/dL 02/14/24 Range/Units 03:29 RBC (4.30-5.90) m/uL Hgb (13.0-17.5) gm/dL Hct (39.0-53.0) % BUN 22 H (9-20) mg/dL Glucose (74-99) mg/dL Total Protein 5.5 L (6.3-8.2) g/dL Albumin 3.4 L (3.5-5.0) g/dL
--- NOTE | 2024-02-14 11:23 | CT ---
EXAMINATION TYPE: CT brain wo con CT DLP: 1111.4 mGycm, Automated exposure control for dose reduction was used. DATE OF EXAM: 02/14/2024 11:17 AM COMPARISON: None. CLINICAL INDICATION:Male, 83 years old with history of Syncope TECHNIQUE: Brain: Multiple axial CT images of the brain were obtained without IV contrast. . Coronal and sagitta l reformats reviewed. FINDINGS: Brain: Extra-axial spaces: No abnormal extra-axial fluid collections. Ventricular system: Ex vacuo dilatation involving the temporal horns and left posterior horn of the l ateral ventricles from adjacent encephalomalacia. Cerebral parenchyma: Cerebral atrophy. No acute intraparenchymal hemorrhage or mass effect. Encephal omalacia identified within the left parietal temporal region and right temporal region. The remaining taylor-white junction is well differentiated. Scattered hypoattenuating areas are seen within the whit e matter. Nonspecific bilateral basal ganglia calcifications. Cerebellum: Unremarkable. Mass effect: No evidence of midline shift. Intracranial vasculature: Atherosclerotic calcifications of the intracranial vessels. Soft tissues: Normal. Calvarium/osseous structures: No depressed skull fracture. Paranasal sinuses and mastoid air cells: Mastoid air cells are clear. Minimal mucosal thickening of t he inferior left maxillary sinus. Remaining paranasal sinuses are clear. Visualized orbits: Bilateral aphakia IMPRESSION: 1. No acute intracranial process. If there is continued clinical concern, consider further evaluatio n with MRI. 2. 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 3. Nonspecific white matter changes, likely secondary to chronic small vessel ischemic disease. [facility], , 02/14/2024 11:21 AM
--- NOTE | 2024-02-14 13:31 | P.CNNES ---
History of Present Illness Consult date: 02/14/24 Requesting physician: Rodrigue Donaldson Reason for Consult: syncope possible seizure History of Present Illness: This is an 83-year-old gentleman with history of traumatic brain injury 3 years ago and he suffered a bleed, memory issues due to the traumatic brain injury who presented emergency department because of passing out episode. Patient is accompanied with his daughters who are at bedside who provides some of the history. Seems yesterday around 6:30 PM he was having dinner with his family members and that he stated that he felt off in which she felt he was about to pass out. He was assisted to the couch by family members and he had a passing out episode of 3 minutes had rolling of his eyes upward. No jerking of any extremities, urinary or bowel incontinence. After the episode he was confused in which she was responding with only 1 word. Patient does not have any an underlying history of seizures in the past. No history of stroke. 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 It seems that he had multiple hospital visit because of the brain bleed with prolonged hospital stays. He was placed on Depakote as a prophylaxis because of his mood and he is on 125 mg in the morning and 250 mg at night. Follow-up with a neurologist as an outpatient. Some of the workup during this hospital visit consisted of: Sodium, calcium, AST ALT, creatinine are within normal limits. Magnesium is wit hin normal limits Serum glucose is 114. Valproic acid level is 25.6 which is considered subtherapeutic and normal supposed to be 50-120 The head is reported as no acute intracranial process. 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 I personally reviewed CT and I agree there is no acute or subacute stroke and the patient does have encephalomalacia from prior insult. Review of Systems The positive and negative as per HPI. Past Medical History Past Medical History: Coronary Artery Disease (CAD), Hyperlipidemia, Hypertension, Myocardial Infarction (ME), Prostate Disorder Additional Past Medical History / Comment(s): vertigo, TBI (fall onto concrete) 2020 Last Myocardial Infarction Date:: 2007 History of Any Multi-Drug Resistant Organisms: None Reported Past Surgical History: Heart Catheterization, Heart Catheterization With Stent Additional Past Surgical History / Comment(s): colonoscopy Past Anesthesia/Blood Transfusion Reactions: No Reported Reaction Date of Last Stent Placement:: 2007 Past Psychological History: No Psychological Hx Reported Smoking Status: Former smoker Past Alcohol Use History: None Reported Additional Past Alcohol Use History / Comment(s): quit smoking 1977 Past Drug Use History: None Reported - Past Family History Mother Family Medical History: No Reported History Medications and Allergies Home Medications Medication Instructions Recorded Confirmed Type Aspirin [Adult Low Dose Aspirin EC] 81 mg PO DAILY 05/18/17 02/13/24 History Atorvastatin [Lipitor] 80 mg PO HS 05/18/17 02/13/24 History Metoprolol Succinate [Toprol XL] 25 mg PO DAILY 05/18/17 02/13/24 History lisinopriL [Zestril] 5 mg PO DAILY 05/18/17 02/13/24 History Divalproex Sprinkle [Depakote 125 mg PO DAILY 02/13/24 02/13/24 History Sprinkle] Divalproex Sprinkle [Depakote 250 mg PO HS 02/13/24 02/13/24 History Sprinkle] Famotidine [Pepcid] 20 mg PO DAILY 02/13/24 02/13/24 History Melatonin 5 mg PO HS 02/13/24 02/13/24 History Multivitamins, Thera [Multivitamin 1 tab PO DAILY 02/13/24 02/13/24 History (formulary)] Tamsulosin [Flomax] 0.4 mg PO DAILY 02/13/24 02/13/24 History Allergies Allergy/AdvReac Type Severity Reaction Status Date / Time No Known Allergies Allergy Verified 10/04/21 16:57 Physical Examination - Vital Signs Vital Signs: Vital Signs Temp Pulse Resp BP Pulse Ox 02/14/24 10:00 62 16 105/61 96 02/14/24 06:53 70 11 L 140/75 96 02/14/24 05:04 60 02/14/24 03:34 52 L 18 105/53 99 02/14/24 02:23 46 L 19 114/69 100 02/14/24 01:12 97.6 F 55 L 11 L 121/72 98 02/14/24 00:35 64 02/14/24 00:10 46 L 18 101/63 99 02/13/24 22:25 71 12 92/51 99 02/13/24 22:14 98 02/13/24 21:21 72 18 111/63 94 L 02/13/24 20:13 63 18 119/67 92 L 02/13/24 19:21 97.3 F L 74 18 Intake and Output 02/13/24 02/14/24 02/14/24 22:59 06:59 14:59 Other: Weight 88.451 kg GENERAL: The patient is sitting in a recliner chair and is not in acute distress. HENT: Supple neck. NEUROLOGICAL: Higher mental function: The patient is awake, alert, oriented to self, correctly stated he is in the hospital. He was tangential about the time. He is following simple commands. No aphasia and no neglect. Cranial nerves: The pupils are round, equal and reactive to light and accommoda tion. Visual patton are full to confrontation throughout. Extraocular movement is intact no nystagmus is noted. Facial sensation is normal to touch throughout. The facial strength is normal throughout. Hearing is severely decreased bilaterally to hand rub (has hearing aids). Tongue is midline and moved [id number] without any difficulty. No dysarthria is noted. Shoulder shrug is normal bilaterally. Motor: The strength is 5 over 5 throughout. Normal tone and bulk. Cerebellum: Normal finger to nose bilaterally. Sensation: Sensation is normal to touch throughout. Reflexes (right/left): 2+ throughout. Plantars are mute bilaterally. Results - Laboratory Findings CBC and BMP: 02/14/24 03:29 02/14/24 03:29 Abnormal Lab Findings: Abnormal Labs 02/13/24 02/13/24 02/14/24 19:51 19:51 03:29 RBC 4.20 L 4.08 L Hgb 12.2 L Hct 38.9 L 37.8 L BUN 23 H Glucose 114 H Total Protein 5.8 L Albumin 02/14/24 03:29 RBC Hgb Hct BUN 22 H Glucose Total Protein 5.5 L Albumin 3.4 L Assessment and Plan Assessment: This is an 83-year-old gentleman with history of traumatic brain injury from a fall about 3 years ago and he suffered a bleed and as a result had a prolonged hospital visit and as a sequela had memory issues who presented emergency department because of passing out episode yesterday with eye rolling back lasting for 3 minutes with postictal confusion according to the daughters. Patient is on Depakote for mood low-dose. His episode of loss of consciousness with eye rolling likely is seizure, especially with traumatic brain injury/encephalomalacia which can cause cortical irritability and lead to seizure History of traumatic brain injury about 3 years ago when he suffered a bleed from a fall and has encephalomalacia Cognitive impairment due to his history of traumatic brain injury Hard of hearing Plan: He is on low-dose of Depakote and his Depakote level is subtherapeutic so therefore I increased his Depakote from 25 mg in the morning and 250 mg at night to 500 mg twice a day. Routine EEG is ordered and is pending Seizure precaution and pads Per the [place] DMV because a seizure/syncope no driving for 6 months until seizure-free or no further syncopal episode. Avoid heights, avoid swimming unassisted or heavy machinery. This was notified to the patient and his daughters. Patient was in agreement about the terms. Will defer the rest of the medical management to primary and other specialist Upon discharge recommend the patient to follow-up with his outpatient neurologist within 2 to 3 weeks. The plan discussed with the patient, his daughters are at bedside. Thank you for the consultation Time with Patient: Greater than 30
[2024-02-14] MEDS: HEPARIN SODIUM,PORCINE 5,000 UNIT/ML 1 ML VIAL SQ SCH (20:38)
[2024-02-14] MEDS: MELATONIN 5 MG TABLET PO SCH (20:38)
[2024-02-14] MEDS: ATORVASTATIN 80 MG TAB PO SCH (20:38)
[2024-02-14] MEDS ORDERED: DIVALPROEX SPRINKLE 125 MG CAP.SPRINK PO SCH (21:00)
--- NOTE | 2024-02-15 02:44 | EEG ---
ELECTROENCEPHALOGRAM REPORT CLINICAL HISTORY: This is an 83-year-old gentleman who presented to the emergency department because of syncopal episode. The video EEG is obtained to evaluate for seizure epileptiform activity. RELEVANT MEDICATION: The patient is on Depakote. EEG TYPE: A routine 21-channel EEG with video using the 10/20 electrode placement system. DESCRIPTION: Wakefulness is only obtained. Most of the study was in a drowsy state. During awake state, the posterior-dominant rhythm consists of eha-pv-riyofomh voltage of 8 to 8.5 hertz activity that is well modulated and well sustained. There is no physiological stage 2 sleep architecture. There is no focal slowing. Interictal and ictal is none appreciated. ACTIVATION PROCEDURE: Photic stimulation did not evoke a posterior driving response. There is no abnormality during the photic stimulation. Hyperventilation is not performed. CLINICAL INTERPRETATION: This is a normal routine EEG. There is no focal slowing, epileptiform discharge, or seizure on the EEG. A normal routine EEG does not rule out underlying epilepsy. Clinical correlation is recommended. MMCORBIN / SHERLYN: [id number] / VLADIMIR
[2024-02-15 07:44] VITALS: BP 129/80; PULSE 60; RESP 18; TEMP 98
[2024-02-15 08:54] LABS: Basophils # (A) 0.01 X 10*3/uL (0.00-0.10); Basophils % (A) 0.2 %; Eosinophils # (A) 0.21 X 10*3/uL (0.04-0.35); Eosinophils % (A) 3.6 %; HCT 38.1 % (39.6-50.0); HGB 12.5 g/dL (13.0-17.0); Lymphocytes # (A) 1.51 X 10*3/uL (0.90-5.00); Lymphocytes % (A) 25.9 %; MCH 30.2 pg (27.0-32.0); MCHC 32.8 g/dL (32.0-37.0); Mean Platelet Volume 10.9 FL (9.5-12.2); Monocytes # (A) 0.72 X 10*3/uL (0.20-1.00); Monocytes % (A) 12.3 %; NRBC Per 100 WBC 0 X 10*3/uL (0.00-0.01); Neutrophils # (A) 3.38 X 10*3/uL (1.80-7.70); Neutrophils % (A) 57.8 %; Platelet Count 206 X 10*3/uL (140-440); RBC 4.14 X 10*6/uL (4.40-5.60); RDW 14.4 % (11.5-14.5); WBC 5.84 X 10*3/uL (4.50-10.00)
[2024-02-15 09:14] LABS: ALT 12 U/L (10-49); AST 25 U/L (14-35); Albumin 3.6 g/dL (3.8-4.9); Albumin/Globulin Ratio 1.89 Ratio (1.60-3.17); Alkaline Phosphatase 51 U/L (41-126); BUN/Creat Ratio 19.62 Ratio (12.00-20.00); Blood Urea Nitrogen 15.7 mg/dL (9.0-27.0); Calcium 8.5 mg/dL (8.7-10.3); Carbon Dioxide 27.1 mmol/L (21.6-31.8); Chloride 107 mmol/L (96-109); Globulin 1.9 g/dL (1.6-3.3); Glucose 102 mg/dL (70-110); Potassium 4.8 mmol/L (3.5-5.5); Sodium 142 mmol/L (135-145); Total Bilirubin 0.2 mg/dL (0.3-1.2); Total Protein 5.5 g/dL (6.2-8.2)
--- NOTE | 2024-02-15 10:11 | P.PN ---
Subjective HISTORY OF PRESENT ILLNESS: This is a 83-year-old male with a past medical history significant for hypertension, hyperlipidemia, myocardial infarction, traumatic brain injury, and seizure disorder. Patient follows with Dr. Arndt in [facility]. We have been asked to see the patient in consultation for syncope. Patient examined at the bedside in the emergency room. Patient's family is present and helping to provide additional HPI. Patient was eating pizza yesterday with his family. He was sitting down at the kitchen table when he felt his face get flushed and told his family he felt like he was going to pass out. His family helped stand him up and get him to the recliner. The family member states at that time, the patient did pass out. He also states that the patient was extremely diaphoretic. The patient also had an episode of vomiting. The patient was reportedly bradycardic when EMS arrived. The patient is reporting sinus congestion and fullness this morning. DIAGNOSTICS: - EKG reveals sinus bradycardia with no signs of acute ischemia. - Chest xray borderline mild cardiomegaly with mild congestive changes. - Laboratory data: WBC 5.1. Hemoglobin 12.2. WBC 214. Sodium 138. Potassium 4.6. BUN 22. Creatinine 0.82. Magnesium 2.0. Troponin negative x 3. proBNP 264. - Current home cardiac medications include aspirin 81 mg daily, atorvastatin 80 mg at night, metoprolol succinate 25 mg daily, lisinopril 5 mg daily. -Patient underwent Cardiolite stress test in July 2017 revealing small fixed defect representing prior infarct with surrounding moderate sintia-infarct reversible ischemia in the distribution of the left circumflex coronary artery. A small fixed defect in the distribution of the RCA from prior infarct. EF estimated at 54%. 02/15/2024 Patient examined this morning the bedside. Patient's family is present. Patient denies any chest pain or pressure. He denies any shortness of breath. He reports mild dizziness. No further episodes of syncope. Vital signs are stable. EEG completed with no evidence of seizure activity. Records reviewed from patient's primary supervisor finish end. The patient did have a Holter monitor in 2020 due to presyncope with no arrhythmias noted. Echocardiogram performed at his primary cardiology office in 2020 revealed preserved LV systolic function with EF 55 to 60%. PHYSICAL EXAM: VITAL SIGNS: Reviewed. GENERAL: Well-developed in no acute distress. HEENT: Head is normocephalic. Pupils are equal, round. Sclerae anicteric. Mucous membranes of the mouth are moist. Neck supple. No JVD or thyromegaly LUNGS: Respirations even and unlabored. Lungs essentially clear to auscultation bilaterally. HEART: Regular rate and rhythm. S1 and S2 heard. ABDOMEN: Soft. Nondistended. Nontender. EXTREMITIES: Normal range of motion. No clubbing or cyanosis. Peripheral pulses intact. Bilateral lower extremity edema noted. NEUROLOGIC: Awake and alert. Oriented x 3. ASSESSMENT: Syncope, likely vasovagal in nature Hypertension Hyperlipidemia Coronary artery disease with previous stenting of the RCA and known chronic total occlusion of left circumflex History of traumatic brain injury, 3 years ago Chronic lower extremity edema PLAN: 2D echo currently pending. Await results. Continue current cardiac medications Continue telemetry monitoring Event monitors are currently unavailable at this facility. Will provide patient with a 14-day Holter at the time of discharge with report to be sent to his primary supervisor finish end. Stable for discharge home this afternoon from a cardiac standpoint Patient to follow-up postdischarge with his primary supervisor finish end, Dr. Arndt Nurse practitioner note has been reviewed by physician. Signing provider agrees with the documented findings, assessment, and plan of care documented by PARTS FINISHER as a scribe. Objective - Vital Signs Vital signs: Vital Signs Temp 98.0 F 02/15/24 07:10 Pulse 60 02/15/24 07:10 Resp 18 02/15/24 07:10 BP 129/80 02/15/24 07:10 Pulse Ox 96 02/15/24 07:10 FiO2 Intake & Output 02/14/24 02/15/24 02/15/24 18:59 06:59 18:59 Intake Total 768 Balance 768 Weight 88.451 kg Intake: Oral 768 Other: Voiding Method Toilet # Voids 2 1 # Bowel Movements 1 - Labs CBC & Chem 7: 02/15/24 04:31 02/15/24 04:31 Labs: Abnormal Lab Results - Last 24 Hours (Table) 02/15/24 02/15/24 Range/Units 04:31 04:31 RBC 4.14 L (4.40-5.60) X 10*6/uL Hgb 12.5 L (13.0-17.0) g/dL Hct 38.1 L (39.6-50.0) % Calcium 8.5 L (8.7-10.3) mg/dL Total Bilirubin 0.2 L (0.3-1.2) mg/dL Total Protein 5.5 L (6.2-8.2) g/dL Albumin 3.6 L (3.8-4.9) g/dL
[2024-02-15] MEDS: polyethylene glycoL 3350 17 GM POWD.PACK PO SCH (11:05)
--- NOTE | 2024-02-15 11:43 | CA ---
Transthoracic Echo Report Name: Marshal Hoang Age: 83 Gender: M : 1940 Exam Date: 02/15/2024 08:54 Exam Location: [place] [facility] Ht (in): 69 Wt (lb): 195 Ordering Physician: Keri Aranda Attending/Referring Phys: [id number], Manoj Engineer First Assistant Jessica Dill RDCS Procedure CPT: Indications: LV function, syncope Cardiac Hx: Technical Quality: Fair Contrast 1: Total Dose (mL): Contrast 2: Total Dose (mL): MEASUREMENTS (Male / Female) Normal Values 2D ECHO LV Diastolic Diameter PLAX 4.6 cm 4.2 - 5.9 / 3.9 - 5.3 cm LV Systolic Diameter PLAX 3.0 cm IVS Diastolic Thickness 1.0 cm 0.6 - 1.0 / 0.6 - 0.9 cm LVPW Diastolic Thickness 0.9 cm 0.6 - 1.0 / 0.6 - 0.9 cm LV Relative Wall Thickness 0.4 LA Volume 80.1 cm??? 18 - 58 / 22 - 52 cm??? LA Volume Index 38.2 cm???/m??? 16 - 28 cm???/m??? M-MODE Aortic Root Diameter MM 3.5 cm LA Systolic Diameter MM 3.0 cm LA Ao Ratio MM 0.9 DOPPLER AV Peak Velocity 159.9 cm/s AV Peak Gradient 10.2 mmHg AV Mean Velocity 109.4 cm/s AV Mean Gradient 5.4 mmHg AV Velocity Time Integral 35.0 cm LVOT Peak Velocity 109.8 cm/s LVOT Peak Gradient 4.8 mmHg LVOT Velocity Time Integral 25.7 cm MV Area PHT 3.7 cm??? Mitral E Point Velocity 99.9 cm/s Mitral A Point Velocity 73.0 cm/s Mitral E to A Ratio 1.4 MV Deceleration Time 205.4 ms MV E' Velocity 7.2 cm/s Mitral E to MV E' Ratio 13.9 TR Peak Velocity 281.7 cm/s TR Peak Gradient 31.7 mmHg Right Ventricular Systolic Press 35.8 mmHg FINDINGS Left Ventricle Left ventricular cavity size normal. Left ventricular wall thickness normal. Normal left ventricular systolic function with no obvious regional wall motion abnormalities. Left ventricular ejection fraction is estimated at 50-55 %. Right Ventricle Normal right ventricular size and function. Right ventricular systolic pressure within normal limits. Right Atrium Normal right atrial size. Left Atrium Moderately increased left atrial volume. Mildly increased left atrial area. Mitral Valve Mitral valve thickened. Moderate mitral annular calcification. Svxi-os-zixdtzdx mitral regurgitation. Aortic Valve Trileaflet aortic valve. No aortic valve stenosis or regurgitation. Aortic valve sclerosis. Tricuspid Valve Structurally normal tricuspid valve. Mild tricuspid regurgitation. Pulmonic Valve Structurally normal pulmonic valve. Pericardium No pericardial effusion. Aorta Normal size aortic root and proximal ascending aorta. CONCLUSIONS 1. Normal left ventricular size and systolic function 2. Mild to moderate mitral with mild tricuspid regurgitation. Previewed by: Dr. Rani Soria MD (Electronically Signed) Final Date: 15 February 2024 11:43
--- NOTE | 2024-02-15 12:50 | P.DS ---
Providers Date of admission: 02/13/24 21:45 Attending physician: Joycelyn Cordero Consults: 02/13/24 21:43 Consult Physician Urgent Consulting Provider: Chino Deluca Consult Reason/Comments: syncope Do you want consulting provider notified?: Yes 02/14/24 10:45 Consult Physician Routine Consulting Provider: David Thomas Consult Reason/Comments: syncope possible seizure Do you want consulting provider notified?: Yes Primary care physician: Radha Carter Hospital Course: Discharge Diagnosis: Witnessed syncopal episode Hypertension Hyperlipidemia BPH History of TBI Hospital Course: 83-year-old male with a past medical history of hyperlipidemia, hypertension, BPH, and TBI (3 years ago) presents with complaints of a syncopal episode. Patient reports he was working outside all day yesterday, in the evening was sitting with his family when he started to feel very warm and vomited. Patient reports he did not feel he was about to pass out and believes that he did not, but after speaking with the family they report he was unresponsive for at least a couple seconds. Family also report they noticed some urinary incontinence when the patient was not responsive. Family reports they did not see any jerking of the extremities. Family reports after the episode patient was not completely responsive but was awake and only speaking in 1-2 word phrases. Family then reports by the time EMS arrived the patient had regained his normal mentation. Initial lab work from the ER was significant for WBC 6.4, hemoglobin 13.1, MCV 92.6, PT 10.7, INR 1.0, sodium 137, potassium 4.6, bicarb 30, creatinine 0.87, glucose 95, troponin less than 0.012, and BNP 264. EKG done in the ER showed heart rate of 58 bpm, no ST segment elevation or depression seen, no T-wave inversions seen. Sinus bradycardia with first-degree AV block. ER CXR: Borderline mild cardiomegaly with mild congestive changes. ER CT head: No acute intracranial process, encephalomalacia involving the bilateral temporal lobes and left parietal lobe from prior insults. While admitted patient received an EEG which showed no focal slowing, epileptiform discharge, or seizures on the EEG. Patient also received an echo which showed normal left ventricular size and systolic function, mild to moderate mitral with mild tricuspid regurgitation and an EF of 50 to 55%. Once patient received an EEG which showed no abnormalities and patient did not have any further syncopal episodes he was cleared by neurology. Patient's Depakote dose was increased to 500 mg twice daily so that it would be therapeutic. After patient received echo which showed no overt abnormalities patient was cleared by cardiology with instructions to wear a 14-day Holter monitor on discharge. Patient is medically stable and cleared for discharge. Patient to be discharged to home. Patient should follow-up with his primary care, neurologist, and drafter heating and ventilating. Pt seen and examined at bedside: Standing in the room and excited to be discharged. Patient feeling well with no complaints. Vital signs reveiwed and stable: General: non toxic, no distress, appears at stated age, normal weight Derm: no unusual rashes/lesions, warm Head: atraumatic, normocephalic, symmetric Eyes: EOMI, no lid lag, anicteric sclera, pupils equal round reactive to light ENT: Nose and ears atraumatic Neck: No cervical lymphadenopathy, trachea midline, supple Mouth: no lip lesion, mucus membranes moist Cardiovascular: S1S2 reg, no murmur, positive dorsalis pedis pulse bilateral, no edema Lungs: Decreased air entry bilaterally, no rhonchi, no rales, no accessory muscle use Abdominal: soft, nontender to palpation, no guarding Ext: muscle strength 5 out of 5 in all 4 extremities grossly, no gross muscle atrophy, no contractures, Neuro: CN II-XI grossly intact, no gross focal neuro deficits Psych: Alert, oriented, appropriate affect A total of greater than 30 minutes were spent preparing this complex discharge summary. Patient was discharged on 02/15/2024. Attestation I have seen and examined this patient with my resident , discussed the same with the resident/SONY, and agree with the dictator's assessment and plan as written Dr. Rashard edward Plan - Discharge Summary New Discharge Prescriptions: New Divalproex Sprinkle [Depakote Sprinkle] 500 mg PO BID #90 cap Continue Atorvastatin [Lipitor] 80 mg PO HS Metoprolol Succinate [Toprol XL] 25 mg PO DAILY lisinopriL [Zestril] 5 mg PO DAILY Aspirin [Adult Low Dose Aspirin EC] 81 mg PO DAILY Melatonin 5 mg PO HS Multivitamins, Thera [Multivitamin (formulary)] 1 tab PO DAILY Famotidine [Pepcid] 20 mg PO DAILY Tamsulosin [Flomax] 0.4 mg PO DAILY Discontinued Divalproex Sprinkle [Depakote Sprinkle] 250 mg PO HS Divalproex Sprinkle [Depakote Sprinkle] 125 mg PO DAILY Discharge Medication List Aspirin [Adult Low Dose Aspirin EC] 81 mg PO DAILY 05/18/17 [History] Atorvastatin [Lipitor] 80 mg PO HS 05/18/17 [History] Metoprolol Succinate [Toprol XL] 25 mg PO DAILY 05/18/17 [History] lisinopriL [Zestril] 5 mg PO DAILY 05/18/17 [History] Famotidine [Pepcid] 20 mg PO DAILY 02/13/24 [History] Melatonin 5 mg PO HS 02/13/24 [History] Multivitamins, Thera [Multivitamin (formulary)] 1 tab PO DAILY 02/13/24 [History] Tamsulosin [Flomax] 0.4 mg PO DAILY 02/13/24 [History] Divalproex Sprinkle [Depakote Sprinkle] 500 mg PO BID #90 cap 02/15/24 [Rx] Follow up Appointment(s)/Referral(s): Radha Carter DO [Primary Care Provider] - 1-2 days Gavino Garcia DO [REFERRING] - 2 Weeks (Cardiology follow up.) David Thomas MD [STAFF PHYSICIAN] - 1 Week (Please follow up with your Neurologist. If you do not have a Neurologist, please contact your Primary Care Physician for a referral.) Patient Instructions/Handouts: Seizure/Epilepsy Discharge Instructions & Follow-Up, Syncope (DC) Discharge Disposition: HOME SELF-CARE
--- NOTE | 2024-02-15 17:19 | P.PN ---
Subjective Progress Note Date: 02/15/24 Following up with the patient and he feels back to baseline. No further syncopal episode or seizure-like activity. Objective - Vital Signs Vital signs: Vital Signs Temp 98.0 F 02/15/24 07:10 Pulse 60 02/15/24 07:10 Resp 18 02/15/24 07:10 BP 129/80 02/15/24 07:10 Pulse Ox 96 02/15/24 07:10 FiO2 Intake & Output 02/14/24 02/15/24 02/15/24 18:59 06:59 18:59 Intake Total 768 736 Balance 768 736 Weight 88.451 kg Intake: Oral 768 736 Other: Voiding Method Toilet Toilet # Voids 2 1 3 # Bowel Movements 1 0 - Exam GENERAL: The patient is sitting in a recliner chair and is not in acute distress. NEUROLOGICAL: Higher mental function: The patient is awake, alert, oriented to self, correctly stated he is in the hospital. He was tangential about the time. He is following simple commands. No aphasia and no neglect. Cranial nerves: The pupils are round, equal and reactive to light and accommodation. Visual patton are full to confrontation throughout. Extraocular movement is intact no nystagmus is noted. Facial sensation is normal to touch throughout. The facial strength is normal throughout. Hearing is severely decreased bilaterally to hand rub (has hearing aids). Tongue is midline and moved [id number] without any difficulty. No dysarthria is noted. Shoulder shrug is normal bilaterally. Motor: Gait is normal. The strength is 5 over 5 throughout. Normal tone and bulk. Cerebellum: Normal finger to nose bilaterally. Sensation: Sensation is normal to touch throughout. Reflexes (right/left): 2+ throughout. Plantars are mute bilaterally. Some of the workup during this hospital visit consisted of: Sodium, calcium, AST ALT, creatinine are within normal limits. Magnesium is within normal limits Serum glucose is 114. Valproic acid level is 25.6 which is considered subtherapeutic and normal supposed to be 50-120 CT head is reported as no acute intracranial process. 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 I personally reviewed CT and I agree there is no acute or subacute stroke and the patient does have encephalomalacia from prior insult. Routine EEG: Normal. 2D echo: Normal left ventricular size and systolic function. Mild to moderate mitral with mild tricuspid regurgitation. 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 Patient is on Depakote for mood low-dose. His episode of loss of consciousness with eye rolling likely is probable seiz ure, especially with traumatic brain injury/encephalomalacia which can cause cortical irritability and lead to seizure. Routine EEG is normal but a normal routine EEG does not rule out seizure. History of traumatic brain injury about 3 years ago when he suffered a bleed from a fall and has encephalomalacia Cognitive impairment due to his history of traumatic brain injury Hard of hearing Plan: He is on low-dose of Depakote and his Depakote level is subtherapeutic so th erefore I increased his Depakote from 125 mg in the morning and 250 mg at night to 500 mg twice a day. Consider repeat EEG as outpatient and that can be coordinated by his outpatient neurologist. Seizure precaution and pads Per the [place] DMV because a seizure/syncope no driving for 6 months until seizure-free or no further syncopal episode. Avoid heights, avoid swimming unassisted or heavy machinery. This was notified to the patient and his daughters. Patient was in agreement about the terms. Cardiology is consulted and recommend an event monitor. Will defer the rest of the medical management to primary and other specialist Upon discharge recommend the patient to follow-up with his outpatient neurologist within 2 to 3 weeks. The plan discussed with the patient, his daughters are at bedside. There is no further neurological work-up. Time with Patient: Less than 30
--- NOTE | 2024-03-11 09:21 | HM ---
HOLTER MONITOR REPORT INDICATION: Syncope. HISTORY OF PRESENT ILLNESS: This 14-day Holter monitor shows sinus rhythm with an average heart rate of 63 beats per minute. Heart rate varied from 141 beats per minute to 163 beats per minute. There was a 2.1 second pause at 4:50 in the morning. There were runs of nonsustained VT, the longest of which was 10 beats. CONCLUSIONS: This Holter monitor shows sinus rhythm with nonsustained VT, sinus bradycardia, and a pause of 2.1 seconds. HERMINIO / KRISTAN: [id number] /
== END 2024-02-15 14:34 | disposition home or self-care (01) ==
LOC: EC 19:18 → 6NMEDSUR 21:45
PROVIDERS: ADMIT Hospitalist; ATTEND Hospitalist
DX: R55 Syncope and collapse (principal); G93.89 Other specified disorders of brain; G31.84 Mild cognitive impairment of uncertain or unknown etiology; H91.90 Unspecified hearing loss, unspecified ear; R60.0 Localized edema; G40.909 Epilepsy, unspecified, not intractable, without status epilepticus; N40.0 Benign prostatic hyperplasia without lower urinary tract symptoms; I25.10 Atherosclerotic heart disease of native coronary artery without angina pectoris; E78.5 Hyperlipidemia, unspecified; I10 Essential (primary) hypertension; I25.2 Old myocardial infarction; Z87.820 Personal history of traumatic brain injury; Z87.891 Personal history of nicotine dependence; Z95.5 Presence of coronary angioplasty implant and graft; Z79.82 Long term (current) use of aspirin; Z79.899 Other long term (current) drug therapy
CPT/HCPCS: 96372 ×2; 96374; 96375; 99285; 36415; 95816; 93005; 93225; 93306; 80164; 83880; 80053 ×3; 83735; 84484 ×2; 85025 ×3; 85610; 85730; 71046; 70450; G0378 ×3; J1644 ×2; J2405; J3490; 93226